=== PATIENT | male | born 1985 | race African-American/Black ===

== ENCOUNTER 2016-09-28 15:47 | Emergency (ER) | payer SELFPAY ==
[~2016-09-28] VITALS: Ht 180.3 cm; Wt 84.1 kg
[2016-09-28 16:53] LABS: HEMATOCRIT 45.3 % (38.0-50.0); MCH 31.4 PG (29.0-34.0); MCHC 33.8 G/DL (30.0-36.0); MCV 92.8 FL (86-99); MEAN PLAT.VOLUME 10.1 uM^3 (9.0-12.4); PLATELET COUNT 233 K/uL (156-360); RBC DIS.WIDTH-CV 12.3 % (11.8-14.6); RBC DIS.WIDTH-SD 42.5 % (39-53); RED BLOOD COUNT 4.88 M/uL (4.00-5.50); WHITE BLOOD COUNT 3.6 K/uL (4.1-10.2)
[2016-09-28 16:56] LABS: AMPHETAMINE NEGATIVE (500 ng/mL); BARBITURATES NEGATIVE (200 ng/mL); BENZODIAZEPINES NEGATIVE (150 ng/mL); COCAINE NEGATIVE (150 ng/mL); INTERNAL CONTROLS VALID? YES; METHADONE NEGATIVE (200 ng/mL); METHAMPHETAMINE NEGATIVE (500 ng/mL); OPIATES (MORPHINE) NEGATIVE (100 ng/mL); OXYCODONE NEGATIVE (100 ng/mL); PHENCYCLIDINE NEGATIVE (25 ng/mL); PROPOXYPHENE NEGATIVE (300 ng/mL); THC CANNABINOIDS NEGATIVE (50 ng/mL); TRICYCLIC ANTIDEPRESSANTS NEGATIVE (300 ng/mL)
[2016-09-28 17:01] LABS: CHLORIDE 103 mEq/L (99-109); POTASSIUM 3.8 mEq/L (3.7-5.4); SODIUM 138 mEq/L (136-147)
[2016-09-28 17:03] LABS: GLUCOSE 96 mg/dL (70-99)
[2016-09-28 17:04] LABS: ANION GAP 10 MEQ/L (2-14)
[2016-09-28 17:06] LABS: SERUM ETHYL ALCOHOL < 10 mg/dL
[2016-09-28 17:07] LABS: GFR ESTIMATE (CALCULATED) > 59 mL/min/
[2016-09-28 17:08] LABS: UREA NITROGEN (BUN) 10 mg/dL (9-23)
[2016-09-28 18:23] VITALS: BP 124/69
== END 2016-09-28 18:24 | disposition home or self-care (01) ==
LOC: EME 15:47
DX: F43.25 Adjustment disorder with mixed disturbance of emotions and conduct (principal)
CPT/HCPCS: 80048; 85027; 90837; 99281; 99284; G0480

== ENCOUNTER 2017-07-02 11:44 | Inpatient (IN) | payer SELFPAY ==
[~2017-07-02] VITALS: Ht 175.3 cm; Wt 73.8 kg
[2017-07-02 13:14] LABS: BASOPHIL (%) 1.2 % (0-1); BASOPHIL COUNT 0.1 K/uL (0-0.1); EOSINOPHIL (%) 3.5 % (0-5); EOSINOPHIL COUNT 0.2 K/uL (0-0.3); HEMATOCRIT 42.5 % (38.0-50.0); HEMOGLOBIN 14.9 G/DL (12.5-16.6); IMMATURE GRANULOCYTE (%) 0.2 % (0.0-0.7); LYMPHOCYTE (%) 41.4 % (15-42); LYMPHOCYTE COUNT 1.8 K/uL (1.0-2.8); MCH 32.5 PG (29.0-34.0); MCHC 35.1 G/DL (30.0-36.0); MCV 92.6 FL (86-99); MONOCYTE (%) 15.9 % (3-12); MONOCYTE COUNT 0.7 K/uL (0-0.8); NEUTROPHIL (%) 37.8 % (45-76); NEUTROPHIL COUNT 1.6 K/uL (1.8-6.4); PLATELET COUNT 225 K/uL (156-360); RBC DIS.WIDTH-CV 13.3 % (11.8-14.6); RBC DIS.WIDTH-SD 45.3 % (39-53); RED BLOOD COUNT 4.59 M/uL (4.00-5.50); WHITE BLOOD COUNT 4.3 K/uL (4.1-10.2)
[2017-07-02 13:25] LABS: CHLORIDE 109 mEq/L (99-109); POTASSIUM 3.7 mEq/L (3.7-5.4); SODIUM 144 mEq/L (136-147)
[2017-07-02 13:26] LABS: GLUCOSE 100 mg/dL (70-99)
[2017-07-02 13:30] LABS: CREATININE 0.8 mg/dL (0.6-1.3); GFR ESTIMATE (CALCULATED) > 59 mL/min/ (58.99-99999); SERUM ETHYL ALCOHOL < 10 mg/dL
[2017-07-02 13:31] LABS: UREA NITROGEN (BUN) 3 mg/dL (9-23)
[2017-07-02 14:33] LABS: APPEARANCE CLEAR ((CLEAR)); BILIRUBIN NEGATIVE; BLOOD NEGATIVE; COLOR YELLOW ((YELLOW)); GLUCOSE (STRIP) NEGATIVE; KETONES 5; LEUKOCYTES NEGATIVE; NITRITE NEGATIVE; PROTEIN (STRIP) 30; SPECIFIC GRAVITY 1.025 (1.000-1.030)
[2017-07-02 14:49] LABS: AMPHETAMINE NEGATIVE (500 ng/mL); BARBITURATES NEGATIVE (200 ng/mL); BENZODIAZEPINES NEGATIVE (150 ng/mL); BUPRENORPHINE NEGATIVE (10 ng/mL); COCAINE NEGATIVE (150 ng/mL); METHADONE NEGATIVE (200 ng/mL); METHAMPHETAMINE NEGATIVE (500 ng/mL); OPIATES (MORPHINE) NEGATIVE (100 ng/mL); OXYCODONE NEGATIVE (100 ng/mL); PHENCYCLIDINE NEGATIVE (25 ng/mL); PROPOXYPHENE NEGATIVE (300 ng/mL); THC CANNABINOIDS NEGATIVE (50 ng/mL); TRICYCLIC ANTIDEPRESSANTS NEGATIVE (300 ng/mL)
[2017-07-02 16:39] VITALS: BP 123/77
[2017-07-03 08:51] VITALS: BP 117/81
[2017-07-03 15:40] VITALS: BP 117/74
[2017-07-04 08:17] VITALS: BP 119/64
[2017-07-04 15:56] VITALS: BP 130/61
[2017-07-05 07:51] VITALS: BP 103/51
[2017-07-05 15:42] VITALS: BP 188/81
[2017-07-05 21:39] VITALS: BP 128/65
[2017-07-06 07:57] VITALS: BP 124/58
[2017-07-06 15:44] VITALS: BP 116/65
[2017-07-07 08:05] VITALS: BP 115/72
[2017-07-07] MEDS ORDERED: ARIPIPRAZOLE5 MG PO (09:02)
[2017-07-07] MEDS ORDERED: SERTRALINE HCL50 MG PO (09:02)
== END 2017-07-07 10:23 | disposition home or self-care (01) | DRG 885 ==
LOC: EME 11:44 → EDOF 15:00 → 1WEST 15:00 → ENRESERV 16:03 → 1WEST 16:35
PROVIDERS: Emergency Medicine
DX: F20.9 Schizophrenia, unspecified (principal); Z60.4 Social exclusion and rejection
CPT/HCPCS: 80048; 81003; 85025; 90837; 97150 GO; 97166 GO; 99281; 99285; G0480

== ENCOUNTER 2017-09-29 16:30 | Emergency (ER) | payer SELFPAY ==
[~2017-09-29] VITALS: Ht 180.3 cm; Wt 85.4 kg
[~2017-09-29 16:30] MED LIST: ARIPIPRAZOLE5 MG PO; SERTRALINE HCL50 MG PO
[2017-09-29 16:32] VITALS: BP 110/70
== END 2017-09-29 17:12 | disposition left against medical advice (07) ==
LOC: EME 16:30
DX: R10.9 Unspecified abdominal pain (principal); R11.2 Nausea with vomiting, unspecified; R19.7 Diarrhea, unspecified; R46.89 Other symptoms and signs involving appearance and behavior; Z53.20 Procedure and treatment not carried out because of patient's decision for unspecified reasons
CPT/HCPCS: 80048; 85027